=== PATIENT | female | born 1980 | race Caucasian/White ===

== ENCOUNTER 2021-06-15 23:47 | Emergency (ER) | payer OTHER | END 2021-06-16 00:54 | disposition left against medical advice (07) | LOC: ER1 23:47 | DX: Z53.21 Procedure and treatment not carried out due to patient leaving prior to being seen by health care provider (principal) ==

== ENCOUNTER → 2022-07-14 | Outpatient (CLI) | payer BC | LOC: CT 07:47 | DX: G96.01 Cranial cerebrospinal fluid leak, spontaneous (principal); R22.0 Localized swelling, mass and lump, head | CPT/HCPCS: 70480; 86334 ==